=== PATIENT | female | born 1985 | race Two or more races ===

== ENCOUNTER 2018-11-09 16:58 | Inpatient (IN) | payer OTHER ==
[2018-11-09 22:15] VITALS: BMI 37.3
--- NOTE | 2018-11-10 03:46 | HP ---
CIWA Score Nausea/Vomitin (vomiting x 3) Muscle Tremors: 3 Anxiety: 3 Agitation: 1-Slight > Activity Paroxysmal Sweats: 2 Orientation: 1-Uncertain about Date Tacttile Disturbances: 0-None Auditory Disturbances: 0-None Visual Disturbances: 0-None Headache: 3-Moderate CIWA-Ar Total Score: 16 - Admission Criteria [facility] Guidelines: Admission for Medically Managed Detox: Requires at least one of the followin. CIWA greater than 12 2. Seizures within the past 24 hours 3. Delirium tremens within the past 24 hours 4. Hallucinations within the past 24 hours 5. Acute intervention needed for co occurring medical disorder 6. Acute intervention needed for co occurring psychiatric disorder 7. Severe withdrawal that cannot be handled at a lower level of care (continued vomiting, continued diarrhea, abnormal vital signs) requiring intravenous medication and/or fluids 8. Admission ROS [facility] Chief Complaint: Alcohol withdrawal symptoms Allergies/Adverse Reactions: Allergies Allergy/AdvReac Type Severity Reaction Status Date / Time shellfish derived Allergy Severe throat Verified 11/09/18 22:05 swelling History of Present Illness: 33 years old female with a log history of alcohol dependence is seeking admission. Patient reports that this is her first time in detox and first admission to [facility]. She has history of hypertension and asthma. Denies suicidal ideation at this time. Exam Limitations: No Limitations - Ebola screening Have you traveled outside of the country in the last 21 days: No (N) Have you had contact with anyone from an Ebola affected area: No Do you have a fever: No - Review of Systems Constitutional: Chills, Loss of Appetite, Malaise, Changes in sleep EENT: reports: Nose Congestion Respiratory: reports: No Symptoms reported Cardiac: reports: No Symptoms Reported GI: reports: Diarrhea, Nausea, Poor Appetite, Poor Fluid Intake, Abdominal cramping : reports: No Symptoms Reported Musculoskeletal: reports: Back Pain, Muscle Pain Integumentary: reports: Dryness, Flushing Neuro: reports: Headache, Tremors Endocrine: reports: No Symptoms Reported Hematology: reports: No Symptoms Reported Psychiatric: reports: Judgement Intact, Mood/Affect Appropiate, Anxious Other Systems: Reviewed and Negative Patient History - Patient Medical History Hx Anemia: No Hx Asthma: Yes (Albuterol) Hx Chronic Obstructive Pulmonary Disease (COPD): No Hx Cardiac Disorders: No Hx Congestive Heart Failure: No Hx Hypertension: Yes (Not on medication) Hx Hypercholesterolemia: No Hx Pacemaker: No HX Cerebrovascular Accident: No Hx Seizures: No Hx Diabetes: No Hx Gastrointestinal Disorders: No Hx Liver Disease: No Hx Genitourinary Disorders: No Hx Sexually Transmitted Disorders: No Hx Renal Disease (ESRD): No Hx Thyroid Disease: No Hx Human Immunodeficiency Virus (HIV): No (Negative 2019) Hx Hepatitis C: No Hx Depression: No Hx Suicide Attempt: No (Denies suicide attempt / suicidal ideation at this time) Hx Bipolar Disorder: No Hx Schizophrenia: No - Patient Surgical History Past Surgical History: No - PPD History Previous Implant?: Yes Implanted On Prior R Admission?: No PPD to be Administered?: Yes - Reproductive History Patient is a Female of Child Bearing Age (11 -55 yrs old): Yes Last Menstrual Period: 10/17/18 Patient : No - Smoking Cessation Smoking history: Current every day smoker Have you smoked in the past 12 months: Yes Aproximately how many cigarettes per day: 4 Hx Chewing Tobacco Use: No Initiated information on smoking cessation: Yes 'Breaking Loose' booklet given: 11/10/18 - Substance & Tx. History Hx Alcohol Use: No Hx Substance Use: Yes Substance Use Type: Cocaine Hx Substance Use Treatment: No - Substances abused Alcohol Substance route: Oral Frequency: 1-2 times per week Amount used: 3 (12 oz) beers/day Age of first use: 31 Date of last use: 11/02/18 Crack Substance route: Smoking Frequency: 3-6 times per week Amount used: $100/day Age of first use: 31 Date of last use: 11/09/18 Family Disease History - Family Disease History Family History: Denies Admission Physical Exam [facility] - Vital Signs Vital Signs: Vital Signs - 24 hr 11/09/18 22:03 Temperature 97.7 F Pulse Rate 81 Respiratory 18 Rate Blood Pressure 148/98 - Physical General Appearance: Yes: Moderate Distress, Tremorous, Anxious HEENTM: Yes: Hearing grossly Normal, Normal ENT Inspection, Normal Voice, ZENIA Respiratory: Yes: Lungs Clear, Normal Breath Sounds, No Respiratory Distress Neck: Yes: Supple Breast: Yes: Breast Exam Deferred Cardiology: Yes: Regular Rhythm, Regular Rate Abdominal: Yes: Normal Bowel Sounds, Soft Genitourinary: Yes: Within Normal Limits Back: Yes: Normal Inspection Musculoskeletal: Yes: Within Normal Limits Extremities: Yes: Tremors Neurological: Yes: Alert, Normal Mood/Affect Integumentary: Yes: Warm Lymphatic: Yes: Within Normal Limits - Diagnostic (1) Asthma Current Visit: Yes Status: Acute Qualifiers: Asthma severity: mild Asthma persistence: intermittent (2) Hypertension Current Visit: Yes Status: Acute Qualifiers: Hypertension type: essential hypertension Qualified Code(s): I10 - Essential (primary) hypertension (3) Alcohol dependence with uncomplicated withdrawal Current Visit: Yes Status: Acute (4) Nicotine dependence Current Visit: Yes Status: Acute Cleared for Admission S - Detox or Rehab [facility] Level of Care: Medically Managed Detox Regimen/Protocol: Librium Breathalyzer - Breathalyzer Breathalyzer: 0 Inpatient Rehab Admission - Rehab Decision to Admit Inpatient rehab admission?: No
[2018-11-10] MEDS ORDERED: MAG HYDROX/AL HYDROX/SIMETH 30 ML UNIT-DOSE CUP PO PRN (03:55)
[2018-11-10] MEDS ORDERED: MENTHOL/PHENOL 1 EACH UD MM PRN (03:55)
[2018-11-10] MEDS ORDERED: ACETAMINOPHEN 325 MG TABLET (FP) PO PRN ×2 (03:55)
[2018-11-10] MEDS ORDERED: BISMUTH SUBSALICYLATE 524 MG/30 ML UD PO PRN (03:55)
[2018-11-10] MEDS ORDERED: MAGNESIUM CITRATE 300 ML BOTTLE PO PRN (03:55)
[2018-11-10] MEDS ORDERED: NICOTINE POLACRILEX 2 MG GUM BUC PRN (03:55)
[2018-11-10] MEDS ORDERED: chlordiazePOXIDE HCL 25 MG CAPSULE PO PRN (03:55)
[2018-11-10] MEDS ORDERED: MAGNESIUM HYDROX 2400MG/30ML ORAL SUSPENSION 30 ML CUP PO PRN (03:55)
[2018-11-10] MEDS: chlordiazePOXIDE HCL 25 MG CAPSULE PO SCH ×4 (04:33→22:21)
[2018-11-10] MEDS: PRENATAL VITAMINS W/ FOLIC ACID TABLET (FP) PO SCH (10:46)
[2018-11-10] MEDS: NICOTINE 14 MG/24 HOURS TOPICAL PATCH TD SCH (10:46)
--- NOTE | 2018-11-10 12:03 | PN ---
[facility] CIWA - CIWA Score Nausea/Vomitin-No Nausea/No Vomiting Muscle Tremors: 3 Anxiety: 2 Agitation: 3 Paroxysmal Sweats: 2 Orientation: 0-Oriented Tacttile Disturbances: 0-None Auditory Disturbances: 0-None Visual Disturbances: 0-None Headache: 0-None Present CIWA-Ar Total Score: 10 S Progress Note (SOAP) Subjective: tired sleepy body aches irritable interrupted sleep Objective: 11/10/18 12:03 Vital Signs Temperature 97.3 F L 11/10/18 07:23 Pulse Rate 85 11/10/18 07:23 Respiratory Rate 18 11/10/18 07:23 Blood Pressure 125/66 11/10/18 07:23 O2 Sat by Pulse Oximetry (%) labs pending aaox3 ambulating no acute distress Assessment: 11/10/18 12:03 withdrawal sx Plan: continue detox increase fluids pending labs
[2018-11-10 12:56] LABS: BILIRUBIN,TOTAL 0.3 mg/dL (0.2-1); BLOOD UREA NITROGEN 13.7 mg/dL (7-18); CALCIUM 8.3 mg/dL (8.5-10.1); CREATININE 0.9 mg/dL (0.55-1.3); POTASSIUM 3.5 mmol/L (3.5-5.1)
[2018-11-10 13:45] LABS: HEMATOCRIT 35.9 % (32.4-45.2); MCHC 33.4 g/dl (32.0-36.0); MEAN CELL VOLUME 95.8 fl (80-96); MEAN PLT VOLUME 9.1 fl (7.5-11.1); PLATELET COUNT 212 K/MM3 (134-434); RBC 3.75 M/mm3 (3.60-5.2); RDW 12.7 % (11.6-15.6); WHITE BLOOD COUNT 4.9 K/mm3 (4.0-10.0)
[2018-11-10] MEDS: THIAMINE HCL 100 MG TABLET (FP) PO SCH (22:21)
[2018-11-10] MEDS: MELATONIN 5 MG TABLETS PO PRN (22:21)
[2018-11-11] MEDS: chlordiazePOXIDE HCL 25 MG CAPSULE PO SCH ×4 (05:30→22:16)
--- NOTE | 2018-11-11 10:27 | PN ---
S CIWA - CIWA Score Nausea/Vomitin-No Nausea/No Vomiting Muscle Tremors: 2 Anxiety: 3 Agitation: 0-Normal Activity Paroxysmal Sweats: 3 Orientation: 0-Oriented Tacttile Disturbances: 0-None Auditory Disturbances: 0-None Visual Disturbances: 0-None Headache: 2-Mild CIWA-Ar Total Score: 10 S Progress Note (SOAP) Subjective: c/o sweats, headache, anxiety, and shakes. Objective: 11/11/18 10:28 Vital Signs 11/11/18 11/11/18 11/11/18 03:30 07:22 09:41 Temperature 97.3 F L 97.3 F L Pulse Rate 75 86 Respiratory 18 18 18 Rate Blood Pressure 126/79 149/92 Lab Results WBC 4.9 K/mm3 (4.0-10.0) 11/10/18 07:30 RBC 3.75 M/mm3 (3.60-5.2) 11/10/18 07:30 Hgb 12.0 GM/dL (10.7-15.3) 11/10/18 07:30 Hct 35.9 % (32.4-45.2) 11/10/18 07:30 MCV 95.8 fl (80-96) 11/10/18 07:30 MCHC 33.4 g/dl (32.0-36.0) 11/10/18 07:30 RDW 12.7 % (11.6-15.6) 11/10/18 07:30 Plt Count 212 K/MM3 (134-434) 11/10/18 07:30 Sodium 144 mmol/L (136-145) 11/10/18 07:30 Potassium 3.5 mmol/L (3.5-5.1) 11/10/18 07:30 Chloride 110 mmol/L (98-107) H 11/10/18 07:30 Carbon Dioxide 28 mmol/L (21-32) 11/10/18 07:30 Anion Gap 6 MMOL/L (8-16) L 11/10/18 07:30 BUN 13.7 mg/dL (7-18) 11/10/18 07:30 Creatinine 0.9 mg/dL (0.55-1.3) 11/10/18 07:30 Random Glucose 95 mg/dL (74-106) 11/10/18 07:30 Calcium 8.3 mg/dL (8.5-10.1) L 11/10/18 07:30 Labs noted. Assessment: 11/11/18 10:28 AOX3, in no respiratory distress. Full ROM, ambulating in the unit. Withdrawal symptoms. Plan: continue detox.
[2018-11-11] MEDS: NICOTINE 14 MG/24 HOURS TOPICAL PATCH TD SCH (11:28)
[2018-11-11] MEDS: PRENATAL VITAMINS W/ FOLIC ACID TABLET (FP) PO SCH (11:28)
[2018-11-11] MEDS: THIAMINE HCL 100 MG TABLET (FP) PO SCH (22:15)
[2018-11-11] MEDS: MELATONIN 5 MG TABLETS PO PRN (22:16)
[2018-11-11] MEDS: METHOCARBAMOL 500 MG TABLET PO PRN (22:18)
[2018-11-12] MEDS ORDERED: chlordiazePOXIDE HCL 10 MG CAPSULE PO PRN
[2018-11-12] MEDS: chlordiazePOXIDE HCL 10 MG CAPSULE PO SCH ×4 (06:45→22:13)
[2018-11-12] MEDS: NICOTINE 14 MG/24 HOURS TOPICAL PATCH TD SCH (10:33)
[2018-11-12] MEDS: PRENATAL VITAMINS W/ FOLIC ACID TABLET (FP) PO SCH (10:33)
[2018-11-12] MEDS: hydrOXYzine PAMOATE 25 MG CAPSULE (FP) PO PRN ×2 (10:34→22:14)
--- NOTE | 2018-11-12 11:02 | PN ---
S CIWA - CIWA Score Nausea/Vomitin-No Nausea/No Vomiting Muscle Tremors: None Anxiety: 3 Agitation: 2 Paroxysmal Sweats: 3 Orientation: 0-Oriented Tacttile Disturbances: 0-None Auditory Disturbances: 0-None Visual Disturbances: 0-None Headache: 2-Mild CIWA-Ar Total Score: 10 S Progress Note (SOAP) Subjective: c/o sweats, anxiety, headache, and muscle aches. Objective: 11/12/18 11:01 Vital Signs 11/12/18 11/12/18 11/12/18 03:30 08:25 09:46 Temperature 97 F L 97.5 F L Pulse Rate 75 85 Respiratory 18 18 18 Rate Blood Pressure 144/58 L 148/93 Lab Results WBC 4.9 K/mm3 (4.0-10.0) 11/10/18 07:30 RBC 3.75 M/mm3 (3.60-5.2) 11/10/18 07:30 Hgb 12.0 GM/dL (10.7-15.3) 11/10/18 07:30 Hct 35.9 % (32.4-45.2) 11/10/18 07:30 MCV 95.8 fl (80-96) 11/10/18 07:30 MCHC 33.4 g/dl (32.0-36.0) 11/10/18 07:30 RDW 12.7 % (11.6-15.6) 11/10/18 07:30 Plt Count 212 K/MM3 (134-434) 11/10/18 07:30 Sodium 144 mmol/L (136-145) 11/10/18 07:30 Potassium 3.5 mmol/L (3.5-5.1) 11/10/18 07:30 Chloride 110 mmol/L (98-107) H 11/10/18 07:30 Carbon Dioxide 28 mmol/L (21-32) 11/10/18 07:30 Anion Gap 6 MMOL/L (8-16) L 11/10/18 07:30 BUN 13.7 mg/dL (7-18) 11/10/18 07:30 Creatinine 0.9 mg/dL (0.55-1.3) 11/10/18 07:30 Random Glucose 95 mg/dL (74-106) 11/10/18 07:30 Calcium 8.3 mg/dL (8.5-10.1) L 11/10/18 07:30 Labs noted. Assessment: 11/12/18 11:01 AOX3, in no respiratory distress. Full ROM, ambulating in the unit. withdrawal symptoms. Plan: continue detox.
[2018-11-12] MEDS: IBUPROFEN 400 MG TABLET (FP) PO PRN (17:59)
[2018-11-12] MEDS: THIAMINE HCL 100 MG TABLET (FP) PO SCH (22:13)
[2018-11-12] MEDS: MELATONIN 5 MG TABLETS PO PRN (22:13)
[2018-11-12] MEDS: METHOCARBAMOL 500 MG TABLET PO PRN (22:14)
[2018-11-13] MEDS: chlordiazePOXIDE HCL 10 MG CAPSULE PO SCH ×2 (06:01→18:13)
[2018-11-13] MEDS: METHOCARBAMOL 500 MG TABLET PO PRN ×2 (07:27→18:14)
[2018-11-13] MEDS: NICOTINE 14 MG/24 HOURS TOPICAL PATCH TD SCH (10:31)
[2018-11-13] MEDS: PRENATAL VITAMINS W/ FOLIC ACID TABLET (FP) PO SCH (10:31)
[2018-11-13] MEDS: hydrOXYzine PAMOATE 25 MG CAPSULE (FP) PO PRN ×2 (10:32→22:08)
--- NOTE | 2018-11-13 11:56 | PN ---
S CIWA - CIWA Score Nausea/Vomitin-No Nausea/No Vomiting Muscle Tremors: None Anxiety: 2 Agitation: 0-Normal Activity Paroxysmal Sweats: 3 Orientation: 0-Oriented Tacttile Disturbances: 0-None Auditory Disturbances: 0-None Visual Disturbances: 0-None Headache: 2-Mild CIWA-Ar Total Score: 7 [facility] Progress Note (SOAP) Subjective: c/o sweats, headache, and anxiety Objective: 11/13/18 11:55 Vital Signs 11/13/18 11/13/18 06:00 09:50 Temperature 97.7 F 97.1 F L Pulse Rate 77 83 Respiratory 18 18 Rate Blood Pressure 104/68 131/75 Assessment: 11/13/18 11:55 AOX3, in no acute respiratory distress. Full ROM, ambulating in the unit. Withdrawal symptoms. For discharge 11/14/18. Plan: continue detox. D/C in AM.
[2018-11-13] MEDS: IBUPROFEN 400 MG TABLET (FP) PO PRN ×2 (12:53→22:08)
--- NOTE | 2018-11-13 12:55 | PN ---
[facility] Progress Note Note: pt c/o lower back pain x2days. BP is 152/101, HR is 84. Lidocaine patch 5% daily and clonidine 0.1mg po once prescribed.
[2018-11-13] MEDS ORDERED: cloNIDine HCL 0.1 MG TABLET PO ONE (12:56)
[2018-11-13] MEDS ORDERED: LIDOCAINE 5% TOPICAL PATCH TP SCH (13:00)
[2018-11-13] MEDS ORDERED: LIDOCAINE PATCH REMOVAL MC SCH ×2 (22:00)
[2018-11-13] MEDS: MELATONIN 5 MG TABLETS PO PRN (22:09)
[2018-11-13] MEDS: THIAMINE HCL 100 MG TABLET (FP) PO SCH (22:10)
[2018-11-14] MEDS ORDERED: chlordiazePOXIDE HCL 10 MG CAPSULE PO ONE (05:00)
[2018-11-14 09:47] VITALS: BP 132/68; PULSE 84; TEMP 98.2
--- NOTE | 2018-11-14 12:25 | DS ---
[facility] Detox Discharge Summary Admission Date: 11/10/18 Discharge Date: 11/14/18 - History Present History: Alcohol Dependence, Cocaine Dependence Additional Comments: Pt is medically cleared and is discharged today. Pt has completed her detox protocol. Pt is encouraged to follow-up with a CD outpatient program and also to follow-up with her pmd. Pt verbalized understanding. Pt is alert and oriented x3 and in no acute respiratory distress. Pertinent Past History: h/o alcohol and cocaine use disorder. - Physical Exam Results Vital Signs: Vital Signs Temperature 98.2 F 11/14/18 09:46 Pulse Rate 84 11/14/18 09:46 Respiratory Rate 16 11/14/18 09:46 Blood Pressure 132/68 11/14/18 09:46 O2 Sat by Pulse Oximetry (%) Vital Signs 11/14/18 11/14/18 07:38 09:46 Temperature 97.3 F L 98.2 F Pulse Rate 70 84 Respiratory 18 16 Rate Blood Pressure 114/65 132/68 Lab Results WBC 4.9 K/mm3 (4.0-10.0) 11/10/18 07:30 RBC 3.75 M/mm3 (3.60-5.2) 11/10/18 07:30 Hgb 12.0 GM/dL (10.7-15.3) 11/10/18 07:30 Hct 35.9 % (32.4-45.2) 11/10/18 07:30 MCV 95.8 fl (80-96) 11/10/18 07:30 MCHC 33.4 g/dl (32.0-36.0) 11/10/18 07:30 RDW 12.7 % (11.6-15.6) 11/10/18 07:30 Plt Count 212 K/MM3 (134-434) 11/10/18 07:30 Sodium 144 mmol/L (136-145) 11/10/18 07:30 Potassium 3.5 mmol/L (3.5-5.1) 11/10/18 07:30 Chloride 110 mmol/L (98-107) H 11/10/18 07:30 Carbon Dioxide 28 mmol/L (21-32) 11/10/18 07:30 Anion Gap 6 MMOL/L (8-16) L 11/10/18 07:30 BUN 13.7 mg/dL (7-18) 11/10/18 07:30 Creatinine 0.9 mg/dL (0.55-1.3) 11/10/18 07:30 Random Glucose 95 mg/dL (74-106) 11/10/18 07:30 Calcium 8.3 mg/dL (8.5-10.1) L 11/10/18 07:30 Labs noted. Pertinent Admission Physical Exam Findings: withdrawal symptoms. - Treatment Hospital Course: Detox Protocol Followed, Detoxed Safely, Responded well, Discharged Condition Good - Medication Discharge Medications: Ambulatory Orders NK [No Known Home Medication] 11/09/18 - Diagnosis (1) Alcohol dependence with uncomplicated withdrawal Status: Acute (2) Asthma Status: Acute Qualifiers: Asthma severity: mild Asthma persistence: intermittent (3) Hypertension Status: Acute Qualifiers: Hypertension type: essential hypertension Qualified Code(s): I10 - Essential (primary) hypertension (4) Nicotine dependence Status: Acute - AMA Did Patient Leave Against Medical Advice: No
== END 2018-11-14 09:56 | disposition home or self-care (01) | DRG 775 ==
LOC: YASAS 16:58 → Y6N 11-10 04:11
PROVIDERS: ADMIT Surgery; ATTEND Surgery
PROC: HZ2ZZZZ Detoxification Services for Substance Abuse Treatment (ICD-10-PCS; principal; 2018-11-10)
DX: F10.230 Alcohol dependence with withdrawal, uncomplicated (principal); F17.210 Nicotine dependence, cigarettes, uncomplicated; I10 Essential (primary) hypertension; J45.909 Unspecified asthma, uncomplicated; M54.5 Low back pain; Z91.013 Allergy to seafood
CPT/HCPCS: 36415; 80053; 85027; 86480; 86593; J0735